=== PATIENT | female | born 1995 | race Caucasian/White ===

== ENCOUNTER 2018-11-22 07:22 | Inpatient (IN) | payer OTHER ==
[2018-11-21 11:26] VITALS: BMI 43.4
[2018-11-22] MEDS ORDERED: BUPIVACAINE HCL/PF 0.5% (5MG/ML) 10 ML VIAL ONE ×2 (09:19→10:31)
[2018-11-22] MEDS ORDERED: MIDAZOLAM HCL 2 MG/2 ML SINGLE DOSE VIAL ONE ×2 (10:32)
[2018-11-22] MEDS ORDERED: fentaNYL CITRATE 250 MCG/5 ML VIAL ONE (11:06)
[2018-11-22] MEDS ORDERED: LIDOCAINE HCL/PF 2% SDV 5ML VIAL ONE (11:06)
[2018-11-22] MEDS ORDERED: ROCURONIUM BROMIDE 50 MG/5 ML VIAL ONE (11:06)
[2018-11-22] MEDS ORDERED: PROPOFOL 20 ML ONE ×3 (11:06→12:02)
[2018-11-22] MEDS ORDERED: DEXAMETHASONE SOD PHOSPHATE 4 MG/1 ML VIAL ONE (11:06)
--- NOTE | 2018-11-22 11:13 | HP ---
Admitting History and Physical - Admission Chief Complaint: Morbid obesity History Source: Patient Limitations to Obtaining History: No Limitations - Past Medical History ...LMP: 11/17/18 - Past Surgical History Past Surgical History: Yes: Tonsillectomy - Smoking History Smoking history: Never smoked Have you smoked in the past 12 months: No - Alcohol/Substance Use Hx Alcohol Use: No Home Medications - Allergies Allergies/Adverse Reactions: Allergies Allergy/AdvReac Type Severity Reaction Status Date / Time No Known Allergies Allergy Verified 11/22/18 08:50 - Home Medications Home Medications: Ambulatory Orders NK [No Known Home Medication] 11/21/18 Family Disease History - Family Disease History Family History: Denies Review of Systems - Review of Systems Constitutional: denies: Chills, Fever Neck: reports: No Symptoms Cardiovascular: reports: No Symptoms Respiratory: reports: No Symptoms Gastrointestinal: reports: No Symptoms Neurological: reports: No Symptoms Pain Intensity: 0 Physical Examination Vital Signs: Vital Signs Temperature 98.6 F 11/22/18 08:47 Pulse Rate 83 11/22/18 08:47 Respiratory Rate 20 11/22/18 08:47 Blood Pressure 136/72 11/22/18 08:47 O2 Sat by Pulse Oximetry (%) 100 11/22/18 08:46 Constitutional: Yes: No Distress, Calm, Obese Cardiovascular: Yes: WNL Respiratory: Yes: WNL, Regular Gastrointestinal: Yes: Soft, Abdomen, Obese Neurological: Yes: Alert, Oriented Problem List - Problems (1) Morbid obesity due to excess calories Code(s): E66.01 - MORBID (SEVERE) OBESITY DUE TO EXCESS CALORIES (2) BMI 40.0-44.9, adult Code(s): Z68.41 - BODY MASS INDEX (BMI) 40.0-44.9, ADULT Assessment/Plan Laparoscopic possible open vertical sleeve gastrectomy possible liver biopsy possible endoscopy
[2018-11-22] MEDS ORDERED: ceFAZolin SODIUM 1 GM VIAL IVPB ONE (11:30)
[2018-11-22] MEDS ORDERED: ceFAZolin SODIUM 1 GM VIAL ONE (11:50)
[2018-11-22] MEDS ORDERED: DESFLURANE GAS 240 ML BOTTLE IH ONE (11:50)
[2018-11-22] MEDS ORDERED: FLU VACCINE QUAD 60 MCG/0.5 ML (MDV 18-19) IM ONE (12:00)
[2018-11-22] MEDS ORDERED: BUPIVACAINE HCL/PF 0.5% (5MG/ML) 10 ML VIAL IJ ONE ×2 (12:20→13:00)
[2018-11-22] MEDS ORDERED: GLYCOPYRROLATE 0.2 MG/1 ML VIAL ONE (13:02)
[2018-11-22] MEDS ORDERED: NEOSTIGMINE METHYLSULFATE 0.5 MG/ML - 10 ML MDV ONE (13:02)
--- NOTE | 2018-11-22 13:18 | OP ---
Operative Note - Note: Operative Date: 11/22/18 Pre-Operative Diagnosis: Morbid obesity. BMI 43.4 Operation: Laparoscopic vertical sleeve gastrectomy. Laparoscopic wedge liver biopsy. EGD Post-Operative Diagnosis: Same as Pre-op (as well as hepatomegaly) Surgeon: Seth White Mingler Operator: Lora Gramajo Anesthesia: General Specimens Removed: Greater curvature of stomach. Liver biopsy Estimated Blood Loss (mls): 30 Drains & Tubes with Location: 36 Fr Bougie Operative Report Dictated: Yes
[2018-11-22] MEDS: LACTATED RINGERS SOLUTION 1,000 ML IV SCH (13:29)
--- NOTE | 2018-11-22 13:44 | SURG ---
Surgery Pneumatic Tester Note Pneumatic Tester: Lora Gramajo PA-C (Suzy) Date of Service: 11/22/18 Diagnosis: Morbid obesity. BMI 43.4 Procedure: Laparoscopic vertical sleeve gastrectomy. Laparoscopic wedge liver biopsy. EGD I was present for the entirety of the operative procedure. For further detail, please refer to operative report. Visit type - Case Type Case Type: Scheduled - Emergency Emergency Visit: No - New patient This patient is new to me today: Yes Date on this admission: 11/22/18 - Critical Care Critical Care patient: No
[2018-11-22] MEDS: METOCLOPRAMIDE HCL INJECTION 10 MG/2 ML VIAL IVPUSH SCH ×2 (13:50→20:21)
--- NOTE | 2018-11-22 13:53 | SPEC ---
DATE OF OPERATION: 11/22/2018 SURGEON: Seth White M.D. SPRING COILER: Lauren Gramajo PREOPERATIVE DIAGNOSES: 1. Morbid obesity. 2. Body mass index of 43.4. POSTOPERATIVE DIAGNOSES: 1. Morbid obesity. 2. Body mass index of 43.4. 3. Hepatomegaly. PROCEDURE: 1. Laparoscopic vertical sleeve gastrectomy. 2. Laparoscopic wedge liver biopsy. 3. Upper endoscopy/esophagogastroduodenoscopy. SPECIMENS: 1. Greater curvature of the stomach. 2. Wedge liver biopsy. ESTIMATED BLOOD LOSS: 30 mL DRAINS: None. ANESTHESIA: General endotracheal. BOUGIE SIZE: 36-Yemeni. REASONS FOR PROCEDURE: This is a 22-year-old female who presents for weight loss options. After trying different options, she has decided to proceed with laparoscopic, possible open, vertical sleeve gastrectomy, possible liver biopsy, possible endoscopy. RISKS AND BENEFITS: After describing the different options for weight loss management, the patient decided to proceed with a laparoscopic, possible open vertical sleeve gastrectomy. The patient was seen by the respective subspecialties and cleared for surgery. The risks and benefits of the procedure were explained. These included bleeding, infection, hernia, TN, DVT, PE, injury to surrounding structures including the liver, colon, bowel, spleen, esophagus, vessel injury, nerve injury, weight regain, gastric leak, staple line leak, sleeve leak, obstruction, vitamin deficiency, hair loss and as some of the possible complications. The patient understood and signed informed consent. DESCRIPTION OF PROCEDURE: The patient was placed supine on the operating room table. The patient underwent general endotracheal intubation. The arms were brought out at 90 degrees and secured. A footboard was placed and the legs were secured laterally with padding. The abdomen was prepped and draped in the usual sterile fashion. A timeout was performed. An incision was made in the left upper quadrant and a Veress needle inserted. Pneumoperitoneum was established. Subsequently, the Veress needle was removed and a 5-mm trocar was placed under direct visualization with the laparoscope. The laparoscopic camera was then inserted and inspection of the abdominal cavity was performed. An incision was then made in the supraumbilical area and a 15-mm trocar was placed under direct visualization. A 5-mm trocar was then placed in the right upper quadrant and a 5-mm trocar was placed below the left subcostal margin. A stab wound was made in the subxiphoid area and a Viviane clamp inserted and removed to dilate the tract. A Janeth liver retractor was inserted. The post was secured at the bedside by the nursing staff. The patient was placed in steep reverse Trendelenburg position and the Janeth liver retractor was used to secure the liver towards the anterior abdominal wall. The pylorus was identified and 6 cm proximal to it, the lesser sac was entered using the LigaSure device. All lateral attachments to the greater curvature of the stomach, including the short gastric vessels, were ligated using the LigaSure device toward the gastrosplenic and gastrophrenic ligaments. Once this was done in its entirety, it was confirmed that all tubes within the nasal or oropharyngeal cavity, including a temperature probe, was removed by Anesthesia. The bougie was then inserted by Anesthesia. Transection of the stomach was then begun staying adjacent to the bougie but away from the angularis. Transection of the stomach was performed near the portion of the stomach where the lesser sac was entered. Two laparoscopic Endo-NORRIS black conrad were used at this location. Laparoscopic Endo NORRIS purple staple loads were then used for the remainder of the transection until the greater curvature of the stomach was fully transected. This was done staying close to the bougie. Care was taken to stay away from the angle of His cephalad. The staple line was then inspected. Hemostasis was identified. A leak test was then performed. It was clamped distally to the staple line. Irrigation solution was placed in the left upper quadrant and air was insufflated by Anesthesia into the sleeve. No leaks were identified. No obstruction was identified. This was done through the entirety of the staple line. In addition, an upper endoscopy was performed. The endoscope was placed into the patients mouth and the entirety of the esophagus, GE junction, gastric pouch and staple line were inspected. No obstruction or leak was noted. The stomach was suctioned and the endoscope removed fully intact. At this point, the irrigation solution was suctioned and again, hemostasis was noted. A wedge liver biopsy was then performed. The left lobe of the liver was identified and a portion of the edge was grasped. Using electrocautery, a wedge of the liver was excised. This was removed and sent off the field as specimen. Hemostasis at the site of the wedge liver biopsy was attained using electrocautery. The 15-mm supraumbilical trocar was then removed and the greater curvature specimen removed from the site using a sponge stick baxter. The specimen was inspected and a Veress needle inserted. The specimen insufflated adequately and no leak was identified. The staple line was noted to be intact. A Murali-Rock device was then used to close the fascia with a 0 Vicryl suture at the site. Again, hemostasis was noted. The Janeth liver retractor was then removed under direct visualization. Pneumoperitoneum was desufflated and the fascial sutures were secured. Hemostasis was noted at all incision sites and Marcaine was injected at all incision sites. All incision sites were closed using 4-0 Biosyn. Sterile dressings were applied. The patient tolerated the procedure well and was transferred to the recovery room in stable condition. The patient was transferred to telemetry for further monitoring. Kimmy SWIFT/[id number]
[2018-11-22] MEDS: ONDANSETRON 4 MG/2 ML VIAL IVPUSH SCH ×3 (14:10→22:15)
[2018-11-22 14:42] LABS: HEMATOCRIT 41.9 % (32.4-45.2); MCHC 31.1 g/dl (32.0-36.0); MEAN CELL VOLUME 74.1 fl (80-96); MEAN PLT VOLUME 8.1 fl (7.5-11.1); PLATELET COUNT 380 K/MM3 (134-434); RBC 5.66 M/mm3 (3.60-5.2); RDW 16.8 % (11.6-15.6); WHITE BLOOD COUNT 13.8 K/mm3 (4.0-10.0)
[2018-11-22] MEDS: ACETAMINOPHEN 1000 MG/100 ML VIAL (NON FORMULARY) IVPB SCH ×2 (14:45→20:44)
[2018-11-22 15:06] LABS: ALBUMIN 3.9 g/dl (3.4-5.0); ALK PHOS 143 U/L (45-117); ANION GAP 7 MMOL/L (8-16); BILIRUBIN,TOTAL 0.3 mg/dL (0.2-1); BLOOD UREA NITROGEN 14 mg/dL (7-18); CALCIUM 9.2 mg/dL (8.5-10.1); CHLORIDE 102 mmol/L (98-107); CO2 27 mmol/L (21-32); CREATININE 0.8 mg/dL (0.55-1.3); GLUCOSE,RANDOM 130 mg/dL (74-106); POTASSIUM 4.2 mmol/L (3.5-5.1); SGOT/AST 50 U/L (15-37); SGPT/ALT 81 U/L (13-61); SODIUM 136 mmol/L (136-145); TOT PROT 8.4 g/dl (6.4-8.2)
[2018-11-22] MEDS: SODIUM CHLORIDE 1,000 ML IV SCH ×2 (16:00→18:00)
[2018-11-22] MEDS: HYDROmorphone HCl 2 MG/ML VIAL IVPB PRN (19:49)
[2018-11-22] MEDS: ENOXAPARIN NA (PORCINE) 40 MG/0.4 ML DISP.SYRIN SQ SCH (22:15)
[2018-11-22] MEDS: FAMOTIDINE 20 MG/50 ML IVPB 20 MG/50 ML MG IVPB SCH (22:16)
[2018-11-23] MEDS: HYDROmorphone HCl 2 MG/ML VIAL IVPB PRN ×2 (00:56→10:06)
[2018-11-23] MEDS: ACETAMINOPHEN 1000 MG/100 ML VIAL (NON FORMULARY) IVPB SCH ×2 (01:29→10:00)
[2018-11-23] MEDS: METOCLOPRAMIDE HCL INJECTION 10 MG/2 ML VIAL IVPUSH SCH ×3 (01:29→14:45)
[2018-11-23] MEDS: ONDANSETRON 4 MG/2 ML VIAL IVPUSH SCH ×4 (01:30→14:45)
[2018-11-23] MEDS: SODIUM CHLORIDE 1,000 ML IV SCH ×3 (06:11→14:44)
[2018-11-23 08:04] LABS: HEMATOCRIT 34.5 % (32.4-45.2); HEMOGLOBIN 10.9 GM/dL (10.7-15.3); MCHC 31.5 g/dl (32.0-36.0); MEAN PLT VOLUME 7.9 fl (7.5-11.1); PLATELET COUNT 362 K/MM3 (134-434); RBC 4.73 M/mm3 (3.60-5.2); RDW 16.4 % (11.6-15.6); WHITE BLOOD COUNT 13.3 K/mm3 (4.0-10.0)
[2018-11-23 08:09] LABS: ALBUMIN 2.7 g/dl (3.4-5.0); ALK PHOS 99 U/L (45-117); ANION GAP 7 MMOL/L (8-16); BILIRUBIN,TOTAL 0.3 mg/dL (0.2-1); BLOOD UREA NITROGEN 8 mg/dL (7-18); CHLORIDE 105 mmol/L (98-107); CO2 26 mmol/L (21-32); CREATININE 0.6 mg/dL (0.55-1.3); GLUCOSE,RANDOM 86 mg/dL (74-106); SGOT/AST 32 U/L (15-37); SGPT/ALT 59 U/L (13-61); SODIUM 138 mmol/L (136-145); TOT PROT 6.1 g/dl (6.4-8.2)
--- NOTE | 2018-11-23 09:50 | PN ---
Progress Note (short form) - Note Progress Note: 22yo F s/p lap sleeve gastrectomy, POD 1. Pt seen and examined at bedside. Pt states that abd pain improving since yesterday. Pt denies fever, chills, n/v. Pt states that she is urinating well. Last Vital Signs Temp Pulse Resp BP Pulse Ox 99.6 F 101 H 18 126/72 98 11/23/18 05:47 11/23/18 05:47 11/23/18 05:47 11/23/18 05:47 11/22/18 22:00 CBC, BMP 11/23/18 06:55 11/23/18 06:55 PE: Gen: A&O X3 Resp: breathing comfortably Abd: soft, nondistended, mild tenderness. Incisions are clean with no erythema or discharge. Ext: no edema Problem List - Problems (1) Morbid obesity due to excess calories Assessment/Plan: Plan -will follow up upper GI, if looks good will start bariatric diet -pt encourage OOB/ambulate -pain control -will consider discharge this evening if doing well. <Jimi Washburn - Last Filed: 11/23/18 09:49> - Note Progress Note: Agree POD 1 No nausea Pain controlled UGI: no leak/obstruction Clears Discharge home <Seth White - Last Filed: 11/23/18 11:46> Problem List - Problems (1) Morbid obesity due to excess calories Code(s): E66.01 - MORBID (SEVERE) OBESITY DUE TO EXCESS CALORIES (2) BMI 40.0-44.9, adult Code(s): Z68.41 - BODY MASS INDEX (BMI) 40.0-44.9, ADULT <Seth White - Last Filed: 11/23/18 11:46>
[2018-11-23] MEDS: ENOXAPARIN NA (PORCINE) 40 MG/0.4 ML DISP.SYRIN SQ SCH (10:07)
[2018-11-23] MEDS: FAMOTIDINE 20 MG/50 ML IVPB 20 MG/50 ML MG IVPB SCH (10:07)
[2018-11-23] MEDS ORDERED: oxyCODONE HCL 5 MG TABLET PO PRN (10:27)
[2018-11-23] MEDS ORDERED: SODIUM CHLORIDE 1,000 ML IV SCH (10:30)
--- NOTE | 2018-11-23 11:14 | PN ---
Progress Note (short form) - Note Progress Note: Anesthesia postop note 22 y/o F s/p GA for gastric sleeve POD#1, vss, aaox3, no complaints. No anesthesia complications.
[2018-11-23 13:01] VITALS: BP 128/79; PULSE 99; TEMP 98.9
[2018-11-23] MEDS: LACTATED RINGERS SOLUTION 1,000 ML IV SCH (14:42)
--- NOTE | 2018-11-26 15:09 | PATH ---
Surgical Pathology Report Patient Name: CRESCENCIO GRIFFITH Med. Rec. #: [id number] /Age/Gender: 1995 (Age: 22) / F Account: [id number] Location: 4 W TELEMETRY U Taken: 11/22/2018 Received: 11/23/2018 Reported: 11/26/2018 Physicians: Seth White M.D. Specimen(s) Received A: GREATER CURVATURE STOMACH B: LIVER BIOPSY Clinical History Morbid obesity Final Diagnosis A. STOMACH, GREATER CURVATURE, LAPAROSCOPIC VERTICAL SLEEVE GASTRECTOMY: PORTION OF STOMACH WITH MODERATE TO SEVERE CHRONIC GASTRITIS. IMMUNOHISTOCHEMICAL STAIN FOR H. PYLORI IS POSITIVE (NUMEROUS). B. LIVER, BIOPSY: LIVER PARENCHYMA WITH MILD PATCHY STEATOSIS (~15%). NO INCREASE IN IRON AND FIBROSIS ON PERFORMED SPECIAL STAINS (IRON AND TRICHROME). Comment: Subcapsular biopsy with thermal artifact. Electronically Signed Kailee Abdalla M.D. Gross Description A. Received in formalin, labeled "greater curvature of stomach," is a 111 gram, 19.5 x 3.5 x 3.1 cm. portion of stomach with a stapled margin of resection. The serosa is pickett-edwards with minimal attached fat. The mucosa is pickett-pink with normal folds. No mucosal masses are identified. Adzing And Boring Machine Feeder sections are submitted in one cassette. B. Received in formalin labeled "liver biopsy," is a 2.8 x 1.3 x 1.2 cm pickett portion of soft tissue, consistent with a portion of liver. Adzing And Boring Machine Feeder sections are submitted in one cassette. /11/23/2018 saudi11/23/2018
== END 2018-11-23 15:20 | disposition home or self-care (01) | DRG 403 ==
LOC: JSAMEDAYSX 07:22 → J4W 16:27
PROVIDERS: ADMIT Surgery; ATTEND Surgery
PROC: 0DB64Z3 Excision of Stomach, Percutaneous Endoscopic Approach, Vertical (ICD-10-PCS; principal; 2018-11-22 11:00)
PROC: 0FD Hepatobiliary System and Pancreas, Extraction (ICD-10-PCS; 2018-11-22 11:00)
PROC: 0DJ08ZZ Inspection of Upper Intestinal Tract, Via Natural or Artificial Opening Endoscopic (ICD-10-PCS; 2018-11-22 11:00)
DX: E66.01 Morbid (severe) obesity due to excess calories (principal); Z68.41 Body mass index [BMI] 40.0-44.9, adult; R16.0 Hepatomegaly, not elsewhere classified
CPT/HCPCS: 36415; 74241-TC-FY; 80053; 84703; 85027; 86850; 86900; 86901; 88305-TC; 90688; 94010; 94760; G0008; J0131; J7030